=== PATIENT | female | born 2000 | race Two or more races ===

== ENCOUNTER 2024-02-27 08:05 | Emergency (ER) | payer OTHER ==
[~2024-02-27] VITALS: Ht 162.6 cm; Wt 63.5 kg
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
[2024-02-27 09:27] VITALS: BP 129/78; PULSE 72; RESP 16; TEMP 98.2; O2SAT 98
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
[2024-02-27] MEDS ORDERED: NAPR-746 PO (10:01)
== END 2024-02-27 10:04 | disposition home or self-care (01) ==
LOC: ER 08:05
DX: S16.1XXA Strain of muscle, fascia and tendon at neck level, initial encounter (principal); Z79.899 Other long term (current) drug therapy; V49.49XA Driver injured in collision with other motor vehicles in traffic accident, initial encounter; Y93.I9 Activity, other involving external motion; Y92.89 Other specified places as the place of occurrence of the external cause; Y99.8 Other external cause status
CPT/HCPCS: 72040